=== PATIENT | male | born 1945 | race Caucasian/White ===

== ENCOUNTER → 2017-06-13 | Outpatient (REF) | payer MEDICARE ==
[~2017-06-13] MED LIST: AMLO5TAB2 PO; ASPI1TAB PO; CIPR-249 PO; DIAZ5TAB PO; FOLI1TAB4 PO; GABA-279 PO; IBUP200C10 PO; METH1TAB40 PO; OMEP20CA3 PO; PERC5TAB12 PO; PROPANOLOL PO; REST0.05 OU; ROPI0.25 PO; SIMV20TA2 PO; VITA1CAP40 PO; [UNRECOGNIZED DRUG - CODE] PO
== END ==
LOC: M LAB REF 13:20
PROVIDERS: ATTEND Urology
DX: Z85.46 Personal history of malignant neoplasm of prostate (principal); Z79.82 Long term (current) use of aspirin; Z79.899 Other long term (current) drug therapy
CPT/HCPCS: 81001; 87086; G0463

== ENCOUNTER → 2019-01-07 | Outpatient (REF) | payer MEDICARE ==
[~2019-01-07] MED LIST changes: -AMLO5TAB2 PO; +AMLO5TAB6 PO; +FOLI1TAB11 PO; -FOLI1TAB4 PO; +GABA-1171 PO; -GABA-279 PO; -IBUP200C10 PO; +IBUP200C25 PO; -ROPI0.25 PO; +ROPI0.253 PO; -VITA1CAP40 PO; +VITA50005 PO
[2019-01-07 19:00] LABS: APPEARANCE, URINE CLEAR (CLEAR); BACTERIA, URINE AUTO NEGATIVE (NEGATIVE); BILIRUBIN, URINE AUTO NEGATIVE (NEGATIVE); BLOOD, URINE BLOOD NEGATIVE (NEGATIVE); COLOR, URINE YELLOW (YELLOW); GLUCOSE, URINE (UA) AUTO NEGATIVE (NEGATIVE); KETONE, URINE AUTO NEGATIVE (NEGATIVE); LEUKOCYTE ESTERASE, URINE AUTO NEGATIVE (NEGATIVE); NITRITE, URINE AUTO NEGATIVE (NEGATIVE); PROTEIN, URINE AUTO NEGATIVE (NEGATIVE); RBC, URINE AUTO 1 /HPF (0-3); SPECIFIC GRAVITY URINE AUTO 1.021 (1.002-1.035); SQUAMOUS EPITHELIAL CELL UR AU 0 /HPF (0-6); UROBILINOGEN, URINE AUTO 0.2 mg/dL (0.0-2.0); WBC, URINE AUTO 1 /HPF (0-3)
== END ==
LOC: M SMT 17:26
PROVIDERS: ATTEND Nurse Practitioner Women's Health
DX: N39.0 Urinary tract infection, site not specified (principal)
CPT/HCPCS: 81001; 87086; G0463

== ENCOUNTER → 2019-05-03 | Outpatient (REF) | payer MEDICARE ==
[~2019-05-03] MED LIST changes: -ASPI1TAB PO; +ASPI81TA26 PO
== END ==
LOC: M LAB REF 15:28
PROVIDERS: ATTEND Nurse Practitioner Family
DX: L08.9 Local infection of the skin and subcutaneous tissue, unspecified (principal)

== ENCOUNTER → 2023-04-01 | Outpatient (REF) | payer MEDICARE ==
[~2023-04-01] MED LIST changes: +AMLO1TAB24 PO; -AMLO5TAB6 PO; +METH-1164 PO; -METH1TAB40 PO; +OMEP1CAP73 PO; -OMEP20CA3 PO; -SIMV20TA2 PO; +SIMV20TA22 PO
== END ==
LOC: M SFHCDERM 14:27
PROVIDERS: ATTEND Dermatology
DX: T14.90XD Injury, unspecified, subsequent encounter (principal)

== ENCOUNTER → 2023-04-22 | Outpatient (REF) | payer MEDICARE | LOC: M SFHCDERM 17:55 | PROVIDERS: ATTEND Dermatology | DX: T86.821 Skin graft (allograft) (autograft) failure (principal) ==

== ENCOUNTER → 2024-04-19 | Outpatient (CLI) | payer MEDICARE ==
[~2024-04-19] MED LIST changes: -ROPI0.253 PO; +ROPI5TAB19 PO
== END ==
LOC: M PLARAD 14:07
PROVIDERS: ATTEND Radiology Radiation Oncology
DX: R91.8 Other nonspecific abnormal finding of lung field (principal)
CPT/HCPCS: 78815; A9552

== ENCOUNTER → 2024-05-27 | Outpatient (CLI) | payer MEDICARE ==
[~2024-05-27] VITALS: Ht 157.5 cm; Wt 66.8 kg
[~2024-05-27] MED LIST changes: +ACET-897 PO; +ACET-907 PO; +ASPI81CH33 PO; +DEXA2TA PO; +DEXA4TA PO; +ENSULIQ51 PO; +FENO160T10 PO; +FENT12DI8 TOP; +FENT1DIS14 TOP; +FENT1PAT25 TOP; +FLEETOIL PR; +FURO40TA2 PO; +GABA-284 PO; +GNP250TA9 PO; +IBUP-1114 PO; +LOPE-39 PO; +MIRA3350 PO; +NARC1SPR; +ONDA-83 PO; +OXYC1TAB23 PO; +PROP20TA72 PO; +SENN-186 PO; +SENN-187 PO; +SENO8.6T5 PO; +SODI15SS PO; +VITA500045 PO
[2024-05-27 14:38] VITALS: BP 122/72; O2SAT 92
== END ==
LOC: M PAL 14:09
PROVIDERS: ATTEND Nurse Practitioner Adult Health
DX: G89.3 Neoplasm related pain (acute) (chronic) (principal); K59.00 Constipation, unspecified; C34.12 Malignant neoplasm of upper lobe, left bronchus or lung; Z51.5 Encounter for palliative care; Z79.82 Long term (current) use of aspirin; Z79.899 Other long term (current) drug therapy; Z79.1 Long term (current) use of non-steroidal anti-inflammatories (NSAID); Z80.3 Family history of malignant neoplasm of breast; Z87.891 Personal history of nicotine dependence; Z88.0 Allergy status to penicillin; Z91.040 Latex allergy status; Z90.79 Acquired absence of other genital organ(s)

== ENCOUNTER → 2024-06-01 | Outpatient (CLI) | payer MEDICARE ==
[~2024-06-01] MED LIST changes: -ACET-907 PO; -DEXA2TA PO; -DEXA4TA PO; -ENSULIQ51 PO; -FENT12DI8 TOP; -FENT1DIS14 TOP; -FENT1PAT25 TOP; -FLEETOIL PR; -FURO40TA2 PO; -GABA-284 PO; +LIDOCAINE 1% MDV 20ML VIAL As Ordered ONE; -MIRA3350 PO; -NARC1SPR; +ONDANSETRON 4MG 2ML VIAL As Ordered ONE; -PROP20TA72 PO; -SENN-187 PO; -SENO8.6T5 PO; -SODI15SS PO; -VITA500045 PO
[2024-06-01 08:30] VITALS: TEMP 97.4
[2024-06-01 09:15] LABS: INR 1.32; PROTHROMBIN TIME 15.9 SECONDS (12.5-14.5)
[2024-06-01] MEDS: ONDANSETRON 4MG 2ML VIAL IV ONE (11:11)
[2024-06-01 11:30] VITALS: BP 125/64; O2SAT 91
== END ==
LOC: M IRPRO 08:25
PROVIDERS: ATTEND Internal Medicine Medical Oncology
DX: R91.1 Solitary pulmonary nodule (principal); C34.12 Malignant neoplasm of upper lobe, left bronchus or lung
CPT/HCPCS: 32408; 85610; 88305; J2405

== ENCOUNTER → 2024-06-09 | Outpatient (CLI) | payer MEDICARE ==
[~2024-06-09] MED LIST changes: +ACET-907 PO; +DEXA2TA PO; +DEXA4TA PO; +ENSULIQ51 PO; +FENT12DI8 TOP; +FENT1DIS14 TOP; +FENT1PAT25 TOP; +FLEETOIL PR; +FURO40TA2 PO; +GABA-284 PO; -LIDOCAINE 1% MDV 20ML VIAL As Ordered ONE; +MIRA3350 PO; +NARC1SPR; -ONDANSETRON 4MG 2ML VIAL As Ordered ONE; +PROP20TA72 PO; +SENN-187 PO; +SENO8.6T5 PO; +SODI15SS PO; +VITA500045 PO
== END ==
LOC: M ONCR 15:14
PROVIDERS: ATTEND General Practice
DX: C34.12 Malignant neoplasm of upper lobe, left bronchus or lung (principal); C79.51 Secondary malignant neoplasm of bone; R64 Cachexia; S34.114A Complete lesion of L4 level of lumbar spinal cord, initial encounter; J38.00 Paralysis of vocal cords and larynx, unspecified; Z87.891 Personal history of nicotine dependence; Z79.82 Long term (current) use of aspirin; Z79.891 Long term (current) use of opiate analgesic; Z79.899 Other long term (current) drug therapy; Z80.3 Family history of malignant neoplasm of breast; Z88.0 Allergy status to penicillin; Z88.1 Allergy status to other antibiotic agents; Z91.040 Latex allergy status; Z90.79 Acquired absence of other genital organ(s)

== ENCOUNTER 2024-06-13 07:34 | Inpatient (IN) | payer MEDICARE ==
[~2024-06-13] VITALS: Ht 172.7 cm; Wt 68.0 kg
[2024-06-13] VITALS (11 sets, daily range): BP systolic 112–136; BP diastolic 61–72; TEMP 97.1–97.2; O2SAT 87–94
[~2024-06-13 07:34] MED LIST changes: -ACET-907 PO; -DEXA2TA PO; -DEXA4TA PO; -FENT12DI8 TOP; -FENT1PAT25 TOP; -FLEETOIL PR; -FURO40TA2 PO; -GABA-284 PO; -MIRA3350 PO; -NARC1SPR; -PROP20TA72 PO; -SENN-187 PO; -SENO8.6T5 PO; -SODI15SS PO; -VITA500045 PO
[2024-06-13] MEDS: MORPHINE 4 MG/ML 1ML VIAL IV ONE (08:29)
[2024-06-13] MEDS: MORPHINE 4 MG/ML 1ML VIAL IV PRN (09:34)
[2024-06-13 09:57] LABS: HEMATOCRIT 30.4 % (42.0-52.0); HEMOGLOBIN 9.6 g/dl (13.5-17.5); MEAN CORPUSCULAR HGB CONC 31.6 g/dl (32.0-36.5); MEAN CORPUSCULAR VOLUME 91.8 fl (80.0-96.0); PLATELET COUNT, AUTOMATED 600 10^3/uL (150-450); RED BLOOD COUNT 3.31 10^6/uL (4.30-6.10); WHITE BLOOD COUNT 13.9 10^3/uL (4.0-10.0)
[2024-06-13 10:38] LABS: BLOOD UREA NITROGEN 35 MG/DL (9-23); CALCIUM LEVEL 10.7 MG/DL (8.3-10.6); CARBON DIOXIDE LEVEL 28 MMOL/L (20-31); CHLORIDE LEVEL 103 MMOL/L (98-107); CREATININE FOR GFR 1.14 MG/DL (0.70-1.30); GLOMERULAR FILTRATION RATE > 60.0 (>42); GLUCOSE, FASTING 91 MG/DL (74-106); POTASSIUM SERUM 4.4 MMOL/L (3.5-5.1); SODIUM LEVEL 135 MMOL/L (136-145)
[2024-06-13] MEDS: KETOROLAC 30 MG/ML 1ML VIAL IV ONE (11:31)
[2024-06-13] MEDS: PERCOCET 5MG/325MG TAB PO ONE ×2 (12:27→16:26)
[2024-06-13 13:44] LABS: PROCALCITONIN 0.14 ng/ml
[2024-06-13] MEDS ORDERED: SENN-83 PO (13:59)
[2024-06-13] MEDS ORDERED: PROP20TA72 PO (13:59)
[2024-06-13] MEDS ORDERED: FENT1DIS14 TOP (13:59)
[2024-06-13] MEDS ORDERED: ONDA-83 PO (13:59)
[2024-06-13] MEDS ORDERED: ACET-907 PO (14:00)
[2024-06-13] MEDS ORDERED: VITA500045 PO (14:01)
[2024-06-13] MEDS ORDERED: HOME MED LIST COMPLETE! XX SCH (14:05)
[2024-06-13] MEDS: KETOROLAC 30 MG/ML 1ML VIAL IV PRN (14:28)
[2024-06-13] MEDS ORDERED: ENTER DRUG NAME HERE (PATIENT'S OWN MED) XX SCH (15:15)
[2024-06-13] MEDS ORDERED: NALOXONE INJ 0.4MG/1ML VIAL IV PRN (16:20)
[2024-06-13] MEDS: GABAPENTIN 300 MG CAP PO SCH (16:26)
[2024-06-13] MEDS: PERCOCET 5MG/325MG TAB PO PRN (21:30)
[2024-06-14] VITALS: BP 148/67; TEMP 98; O2SAT 94
[2024-06-14] MEDS: MORPHINE 2 MG/ML 1ML VIAL IV ONE (00:56)
[2024-06-14 05:24] VITALS: BP 138/64; TEMP 97.8; O2SAT 93
[2024-06-14] MEDS: MORPHINE 2 MG/ML 1ML VIAL IV PRN (05:36)
[2024-06-14 07:17] LABS: HEMATOCRIT 34.9 % (42.0-52.0); HEMOGLOBIN 10.7 g/dl (13.5-17.5); MEAN CORPUSCULAR HEMOGLOBIN 28.5 pg (27.0-33.0); MEAN CORPUSCULAR HGB CONC 30.7 g/dl (32.0-36.5); MEAN CORPUSCULAR VOLUME 92.8 fl (80.0-96.0); PLATELET COUNT, AUTOMATED 668 10^3/uL (150-450); RED BLOOD COUNT 3.76 10^6/uL (4.30-6.10); WHITE BLOOD COUNT 13.8 10^3/uL (4.0-10.0)
[2024-06-14 07:33] VITALS: BP 141/66; TEMP 97.8; O2SAT 92
[2024-06-14 07:35] LABS: BLOOD UREA NITROGEN 30 MG/DL (9-23); CALCIUM LEVEL 11.2 MG/DL (8.3-10.6); CARBON DIOXIDE LEVEL 31 MMOL/L (20-31); CHLORIDE LEVEL 104 MMOL/L (98-107); CREATININE FOR GFR 1.12 MG/DL (0.70-1.30); GLOMERULAR FILTRATION RATE > 60.0 (>42); GLUCOSE, FASTING 112 MG/DL (74-106); POTASSIUM SERUM 5.5 MMOL/L (3.5-5.1); SODIUM LEVEL 139 MMOL/L (136-145)
[2024-06-14] MEDS: ENOXAPARIN 40MG/0.4ML SYRINGE (J1650 PER 10MG) SC SCH (08:11)
[2024-06-14] MEDS ORDERED: MIRALAX *UNIT DOSE* 17GM PACKET PO PRN (09:45)
[2024-06-14] MEDS: SENNA 8.6 MG TAB (SENOKOT) PO PRN (10:10)
[2024-06-14 12:00] VITALS: BP 128/70; TEMP 97.4; O2SAT 94
[2024-06-14] MEDS: ALBUTEROL SULFATE 2.5MG/0.5ML INH NEB SOLN NEB ONE (12:06)
[2024-06-14] MEDS: FUROSEMIDE 40MG/4ML VIAL IV ONE (12:54)
[2024-06-14] MEDS: ASPIRIN 81MG CHEW TABLET PO SCH (12:55)
[2024-06-14] MEDS: OMEPRAZOLE 20MG CAP PO SCH (12:55)
[2024-06-14] MEDS: FOLIC ACID 1MG TAB PO SCH (12:55)
[2024-06-14] MEDS: amLODIPine 5 MG TAB PO SCH (12:56)
[2024-06-14] MEDS: PROPRANOLOL 10 MG TAB PO SCH (12:56)
[2024-06-14] MEDS: CALCIUM GLUCONATE 1,000 MG in D5W MINI-BAG PLUS 100 ML IV ONE (12:56)
[2024-06-14] MEDS: SODIUM CHLORIDE 0.9% 1000ML IV SCH (12:56)
[2024-06-14] MEDS: ONDANSETRON 4MG 2ML VIAL IV PRN (13:29)
[2024-06-14 16:00] VITALS: BP 126/62; TEMP 97.6; O2SAT 96
[2024-06-14 19:29] VITALS: BP 106/52; TEMP 97; O2SAT 94
[2024-06-14 19:59] LABS: BLOOD UREA NITROGEN 27 MG/DL (9-23); CALCIUM LEVEL 11.1 MG/DL (8.3-10.6); CARBON DIOXIDE LEVEL 30 MMOL/L (20-31); CHLORIDE LEVEL 103 MMOL/L (98-107); CREATININE FOR GFR 1.09 MG/DL (0.70-1.30); GLOMERULAR FILTRATION RATE > 60.0 (>42); GLUCOSE, FASTING 108 MG/DL (74-106); POTASSIUM SERUM 4.9 MMOL/L (3.5-5.1); SODIUM LEVEL 137 MMOL/L (136-145)
[2024-06-14] MEDS: FENOFIBRATE 145MG TABLET (TRICOR) PO SCH (20:13)
[2024-06-14] MEDS: rOPINIRole 0.25 MG TAB(REQUIP) PO SCH (20:13)
[2024-06-14] MEDS: SIMVASTATIN 20 MG TAB PO SCH (20:13)
[2024-06-15] VITALS (7 sets, daily range): BP systolic 90–130; BP diastolic 46–63; TEMP 96.9–98.1; O2SAT 90–93
[2024-06-15 06:07] LABS: BASO # 0.1 10^3/uL (0.0-0.2); BASO % 0.6 % (0.0-1.0); EOS % 7.7 % (0.0-3.0); HEMATOCRIT 30.8 % (42.0-52.0); HEMOGLOBIN 9.5 g/dl (13.5-17.5); LYMPH # 2.7 10^3/uL (1.5-5.0); LYMPH % 21.1 % (24.0-44.0); MEAN CORPUSCULAR HEMOGLOBIN 28.7 pg (27.0-33.0); MEAN CORPUSCULAR HGB CONC 30.8 g/dl (32.0-36.5); MEAN CORPUSCULAR VOLUME 93.1 fl (80.0-96.0); MONO # 1.2 10^3/uL (0.0-0.8); MONO % 9.5 % (2.0-8.0); NEUTROPHILS # 7.7 10^3/uL (1.5-8.5); NEUTROPHILS % 60.6 % (36.0-66.0); PLATELET COUNT, AUTOMATED 607 10^3/uL (150-450); RED BLOOD COUNT 3.31 10^6/uL (4.30-6.10); WHITE BLOOD COUNT 12.7 10^3/uL (4.0-10.0)
[2024-06-15 06:25] LABS: ALBUMIN 2.2 G/DL (3.2-5.2); ALKALINE PHOSPHATASE 48 U/L (46-116); ALT/SGPT < 9 U/L (7.0-40); AST/SGOT 15 U/L (<34); BILIRUBIN,TOTAL 0.3 MG/DL (0.3-1.2); BLOOD UREA NITROGEN 27 MG/DL (9-23); CALCIUM LEVEL 10.6 MG/DL (8.3-10.6); CARBON DIOXIDE LEVEL 30 MMOL/L (20-31); CHLORIDE LEVEL 102 MMOL/L (98-107); CREATININE FOR GFR 1.04 MG/DL (0.70-1.30); GLOMERULAR FILTRATION RATE > 60.0 (>42); GLUCOSE, FASTING 97 MG/DL (74-106); SODIUM LEVEL 135 MMOL/L (136-145); TOTAL PROTEIN 5.9 G/DL (5.7-8.2)
[2024-06-15] MEDS: IPRATROPIUM 0.5MG/ALBUTEROL 2.5MG INH SOL UD 3ML (DUONEB) NEB PRN (07:13)
[2024-06-15] MEDS: LR 1,000 ML IV SCH (08:48)
[2024-06-15] MEDS: KETOROLAC 30 MG/ML 1ML VIAL IV ONE (08:49)
[2024-06-15] MEDS: fentaNYL 25 MCG/HR PATCH TOP SCH (08:50)
[2024-06-15] MEDS ORDERED: FENTANYL REMOVAL DOCUMENTATION MISC XX SCH (09:00)
[2024-06-15] MEDS ORDERED: PANTOPRAZOLE 40MG VIAL IV SCH (09:00)
[2024-06-15] MEDS: dexAMETHasone 20MG/5ML VIAL IV ONE (13:00)
[2024-06-15] MEDS: MIRALAX *UNIT DOSE* 17GM PACKET PO SCH (14:30)
[2024-06-15] MEDS: GABAPENTIN 400MG CAP PO SCH (16:53)
[2024-06-15] MEDS: oxyCODONE 5MG TAB PO PRN (20:54)
[2024-06-16] VITALS (9 sets, daily range): BP systolic 110–143; BP diastolic 55–70; TEMP 96.9–97.4; O2SAT 88–95
[2024-06-16 05:52] LABS: HEMOGLOBIN 9.1 g/dl (13.5-17.5); MEAN CORPUSCULAR HEMOGLOBIN 28.5 pg (27.0-33.0); MEAN CORPUSCULAR HGB CONC 30.3 g/dl (32.0-36.5); PLATELET COUNT, AUTOMATED 665 10^3/uL (150-450); RED BLOOD COUNT 3.19 10^6/uL (4.30-6.10); WHITE BLOOD COUNT 17.9 10^3/uL (4.0-10.0)
[2024-06-16] MEDS: dexAMETHasone 20MG/5ML VIAL IV SCH (07:49)
[2024-06-16 08:20] LABS: BLOOD UREA NITROGEN 29 MG/DL (9-23); CALCIUM LEVEL 10.4 MG/DL (8.3-10.6); CARBON DIOXIDE LEVEL 31 MMOL/L (20-31); CHLORIDE LEVEL 104 MMOL/L (98-107); CREATININE FOR GFR 0.96 MG/DL (0.70-1.30); GLOMERULAR FILTRATION RATE > 60.0 (>42); GLUCOSE, FASTING 115 MG/DL (74-106); POTASSIUM SERUM 5.6 MMOL/L (3.5-5.1); SODIUM LEVEL 137 MMOL/L (136-145)
[2024-06-16] MEDS: PATIROMER SORBITEX CALCIUM 8.4 GM POWDER PACKET (VELTASSA) PO ONE (14:06)
[2024-06-17] VITALS (14 sets, daily range): BP systolic 125–158; BP diastolic 63–76; TEMP 96.8–97.1; O2SAT 89–98
[2024-06-17 07:52] LABS: HEMATOCRIT 34.8 % (42.0-52.0); HEMOGLOBIN 10.8 g/dl (13.5-17.5); MEAN CORPUSCULAR HEMOGLOBIN 28.8 pg (27.0-33.0); MEAN CORPUSCULAR VOLUME 92.8 fl (80.0-96.0); PLATELET COUNT, AUTOMATED 771 10^3/uL (150-450); RED BLOOD COUNT 3.75 10^6/uL (4.30-6.10); WHITE BLOOD COUNT 19.9 10^3/uL (4.0-10.0)
[2024-06-17 08:21] LABS: BLOOD UREA NITROGEN 24 MG/DL (9-23); CARBON DIOXIDE LEVEL 32 MMOL/L (20-31); CHLORIDE LEVEL 98 MMOL/L (98-107); CREATININE FOR GFR 0.88 MG/DL (0.70-1.30); GLOMERULAR FILTRATION RATE > 60.0 (>42); GLUCOSE, FASTING 100 MG/DL (74-106); POTASSIUM SERUM 5.5 MMOL/L (3.5-5.1); SODIUM LEVEL 132 MMOL/L (136-145)
[2024-06-17] MEDS ORDERED: fentaNYL 50 MCG/HR PATCH TOP SCH (08:25)
[2024-06-17] MEDS ORDERED: FENTANYL REMOVAL DOCUMENTATION MISC XX SCH ×2 (08:25→08:30)
[2024-06-17] MEDS: METHYLNALTREXONE BROMIDE 12MG/0.6ML VIAL (RELISTOR) SC ONE (08:57)
[2024-06-17] MEDS: LACTULOSE 20GM/30ML SYRUP UDC PO SCH ×2 (09:11→17:58)
[2024-06-17] MEDS: FENTANYL REMOVAL DOCUMENTATION MISC XX SCH (09:15)
[2024-06-17] MEDS: fentaNYL 50 MCG/HR PATCH TOP SCH (09:16)
[2024-06-17] MEDS: PATIROMER SORBITEX CALCIUM 8.4 GM POWDER PACKET (VELTASSA) PO SCH (11:36)
[2024-06-18 03:21] VITALS: BP 150/74; TEMP 97.3; O2SAT 92
[2024-06-18] MEDS ORDERED: METHYLNALTREXONE BROMIDE 12MG/0.6ML VIAL (RELISTOR) SC ONE (07:25)
[2024-06-18 07:34] VITALS: BP 146/84; TEMP 97.2; O2SAT 94
[2024-06-18 08:22] LABS: BLOOD UREA NITROGEN 26 MG/DL (9-23); CALCIUM LEVEL 11.5 MG/DL (8.3-10.6); CARBON DIOXIDE LEVEL 31 MMOL/L (20-31); CHLORIDE LEVEL 99 MMOL/L (98-107); CREATININE FOR GFR 0.86 MG/DL (0.70-1.30); GLOMERULAR FILTRATION RATE > 60.0 (>42); GLUCOSE, FASTING 91 MG/DL (74-106); POTASSIUM SERUM 5.4 MMOL/L (3.5-5.1); SODIUM LEVEL 131 MMOL/L (136-145)
[2024-06-18] MEDS ORDERED: fentaNYL 25 MCG/HR PATCH TOP SCH (09:00)
[2024-06-18] MEDS ORDERED: METAMUCIL (PSYLLIUM) PACKET PO SCH (09:00)
[2024-06-18] MEDS: dexAMETHasone 4 MG TAB PO SCH (09:11)
[2024-06-18] MEDS: SENNA 8.6 MG TAB (SENOKOT) PO SCH (09:11)
[2024-06-18] MEDS: LIDOCAINE 5% (LIDODERM) PATCH TD SCH ×2 (09:16→09:17)
[2024-06-18 10:07] LABS: PHOSPHORUS LEVEL 3.3 MG/DL (2.4-5.1)
[2024-06-18 10:08] LABS: URIC ACID 4.9 MG/DL (3.7-9.2)
[2024-06-18] MEDS: dexAMETHasone 2 MG TAB PO SCH (11:14)
[2024-06-18] MEDS: ZOLEDRONIC ACID 4 MG in IV 1 EA IV ONE (11:14)
[2024-06-18 11:48] VITALS: BP 149/85; TEMP 97; O2SAT 93
[2024-06-18] MEDS: FUROSEMIDE 20MG/2ML VIAL IV SCH (14:09)
[2024-06-18] MEDS: NS 1,000 ML IV SCH (14:09)
[2024-06-18] MEDS: METHYLNALTREXONE BROMIDE 12MG/0.6ML VIAL (RELISTOR) SC ONE (14:09)
[2024-06-18 16:20] VITALS: BP 113/67; TEMP 96.8; O2SAT 93
[2024-06-18 19:50] VITALS: BP 102/63; TEMP 97.1; O2SAT 91
[2024-06-18] MEDS: ACETAMINOPHEN *IV* 1,000 MG in IV 1 EA IV ONE (22:56)
[2024-06-18 23:16] VITALS: BP 120/59; TEMP 97.3; O2SAT 92
[2024-06-19 05:07] VITALS: BP 149/74; TEMP 97.9; O2SAT 89
[2024-06-19 05:18] LABS: HEMATOCRIT 29.4 % (42.0-52.0); HEMOGLOBIN 9.4 g/dl (13.5-17.5); MEAN CORPUSCULAR HEMOGLOBIN 29.1 pg (27.0-33.0); PLATELET COUNT, AUTOMATED 687 10^3/uL (150-450); RED BLOOD COUNT 3.23 10^6/uL (4.30-6.10); WHITE BLOOD COUNT 16.2 10^3/uL (4.0-10.0)
[2024-06-19 08:16] VITALS: BP 148/71; TEMP 97.6; O2SAT 92
[2024-06-19 08:21] LABS: BLOOD UREA NITROGEN 31 MG/DL (9-23); CALCIUM LEVEL 9.8 MG/DL (8.3-10.6); CARBON DIOXIDE LEVEL 30 MMOL/L (20-31); CHLORIDE LEVEL 102 MMOL/L (98-107); CREATININE FOR GFR 1.01 MG/DL (0.70-1.30); GLOMERULAR FILTRATION RATE > 60.0 (>42); GLUCOSE, FASTING 74 MG/DL (74-106); POTASSIUM SERUM 5.1 MMOL/L (3.5-5.1); SODIUM LEVEL 134 MMOL/L (136-145)
[2024-06-19] MEDS: FLEET OIL RETENTION ENEMA PR SCH (09:00)
[2024-06-19] MEDS: LACTULOSE 20GM/30ML SYRUP UDC PO SCH (09:05)
[2024-06-19] MEDS: FUROSEMIDE 20MG/2ML VIAL IV SCH (09:58)
[2024-06-19] MEDS ORDERED: FENT1PAT25 TOP ×2 (10:51→10:54)
[2024-06-19] MEDS ORDERED: SODI15SS PO (10:51)
[2024-06-19] MEDS ORDERED: FURO40TA2 PO (10:51)
[2024-06-19] MEDS ORDERED: GABA-284 PO (10:51)
[2024-06-19] MEDS ORDERED: MIRA3350 PO (10:51)
[2024-06-19] MEDS ORDERED: DEXA4TA PO (10:51)
[2024-06-19] MEDS ORDERED: SENO8.6T5 PO (10:51)
[2024-06-19] MEDS ORDERED: NARC1SPR (10:51)
[2024-06-19] MEDS ORDERED: FLEETOIL PR (10:51)
[2024-06-19] MEDS ORDERED: DEXA2TA PO (10:51)
[2024-06-19] MEDS ORDERED: FENT12DI8 TOP ×2 (10:52→10:54)
[2024-06-19 12:10] VITALS: BP 136/65; TEMP 96.9; O2SAT 88
[2024-06-19] MEDS: SOD POLYSTYRENE SULFONATE SUSP 15GM 60ML UD PO SCH (13:06)
[2024-06-19] MEDS: fentaNYL 50 MCG/HR PATCH TOP SCH (13:07)
[2024-06-19 15:33] VITALS: BP 116/75; TEMP 97; O2SAT 92
[2024-06-19 20:30] VITALS: BP 108/60; TEMP 97.2; O2SAT 91
[2024-06-19] MEDS: PROPRANOLOL 10 MG TAB PO SCH (21:41)
[2024-06-19 23:20] VITALS: BP 122/60; TEMP 97; O2SAT 94
[2024-06-20 03:46] VITALS: BP 107/57; TEMP 97.2; O2SAT 93
[2024-06-20 06:17] LABS: BLOOD UREA NITROGEN 27 MG/DL (9-23); CALCIUM LEVEL 9.5 MG/DL (8.3-10.6); CARBON DIOXIDE LEVEL 30 MMOL/L (20-31); CHLORIDE LEVEL 100 MMOL/L (98-107); CREATININE FOR GFR 1.03 MG/DL (0.70-1.30); GLOMERULAR FILTRATION RATE > 60.0 (>42); GLUCOSE, FASTING 78 MG/DL (74-106); POTASSIUM SERUM 4.5 MMOL/L (3.5-5.1); SODIUM LEVEL 135 MMOL/L (136-145)
[2024-06-20 08:00] VITALS: BP 138/70; TEMP 97.1; O2SAT 94
[2024-06-20] MEDS: FUROSEMIDE 40 MG TAB PO SCH (08:31)
[2024-06-20] MEDS ORDERED: ENTER DRUG NAME HERE (PATIENT'S OWN MED) TOP SCH (09:00)
[2024-06-20 12:13] VITALS: BP 104/61; TEMP 97; O2SAT 93
[2024-06-20 16:00] VITALS: BP 91/55; TEMP 97.2; O2SAT 95
[2024-06-20 20:02] VITALS: BP 105/61; TEMP 96.5; O2SAT 94
[2024-06-20 23:46] VITALS: BP 100/56; TEMP 96.9; O2SAT 96
[2024-06-21 03:22] VITALS: BP 113/58; TEMP 97.1; O2SAT 95
[2024-06-21] MEDS: ACETAMINOPHEN *IV* 1,000 MG in IV 1 EA IV ONE (03:42)
[2024-06-21 07:24] VITALS: BP 117/60; TEMP 97.6; O2SAT 94
[2024-06-21 07:58] LABS: BLOOD UREA NITROGEN 34 MG/DL (9-23); CALCIUM LEVEL 8.5 MG/DL (8.3-10.6); CARBON DIOXIDE LEVEL 29 MMOL/L (20-31); CHLORIDE LEVEL 100 MMOL/L (98-107); CREATININE FOR GFR 1.06 MG/DL (0.70-1.30); GLOMERULAR FILTRATION RATE > 60.0 (>42); GLUCOSE, FASTING 100 MG/DL (74-106); POTASSIUM SERUM 4.3 MMOL/L (3.5-5.1); SODIUM LEVEL 132 MMOL/L (136-145)
[2024-06-21 11:43] VITALS: BP 120/57; TEMP 96.7; O2SAT 92
[2024-06-21 15:33] VITALS: BP 100/58; TEMP 96.6; O2SAT 94
[2024-06-21 16:14] VITALS: BP 122/68
[2024-06-21 19:59] VITALS: BP 107/59; TEMP 96.9; O2SAT 93
[2024-06-22 03:56] VITALS: BP 111/64; TEMP 96.9; O2SAT 94
[2024-06-22 07:38] VITALS: BP 126/63; TEMP 98; O2SAT 98
[2024-06-22 09:24] VITALS: BP 126/63
[2024-06-22] MEDS: FENTANYL REMOVAL DOCUMENTATION MISC XX SCH (13:11)
[2024-06-22] MEDS: MORPHINE 2 MG/ML 1ML VIAL IV ONE (13:20)
[2024-06-22] MEDS ORDERED: FLEET ENEMA PR PRN (15:45)
[2024-06-22] MEDS: MORPHINE 2 MG/ML 1ML VIAL IV PRN (20:21)
[2024-06-23] MEDS: LORazepam 1 MG TAB PO PRN (03:58)
[2024-06-23] MEDS: MORPHINE 10MG/0.5ML ORAL CONCENTRATE SOLUTION U/D SL PRN ×3 (09:45→13:49)
[2024-06-23] MEDS: LIDOCAINE 5% (LIDODERM) PATCH TD SCH (14:35)
[2024-06-23] MEDS: MORPHINE 15 MG SA TAB PO SCH (21:47)
[2024-06-24] MEDS: MORPHINE 2 MG/ML 1ML VIAL IV PRN (08:50)
[2024-06-24] MEDS: COMBIVENT RESPIMAT 100-20MCG INHALER 4GM INH PRN (12:07)
[2024-06-25] MEDS ORDERED: FENTANYL REMOVAL DOCUMENTATION MISC XX SCH (09:00)
[2024-06-25] MEDS: MORPHINE 2 MG/ML 1ML VIAL IV PRN (17:31)
[2024-06-25] MEDS: MORPHINE 15 MG SA TAB PO SCH (21:27)
[2024-06-26] MEDS ORDERED: ACETAMINOPHEN TAB 650MG DOSE (2X325MG) PO PRN (20:20)
[2024-06-27] MEDS: HYOSCYAMINE SULFATE 0.125 MG SUBL TABLET PO PRN (00:48)
[2024-06-27 19:00] VITALS: BP 126/63; TEMP 98; O2SAT 92
[2024-06-28] MEDS ORDERED: MORPHINE 10MG/0.5ML ORAL CONCENTRATE SOLUTION U/D SL SCH (09:00)
[2024-06-28] MEDS ORDERED: MORPHINE SULFATE ORAL SOLN 10 MG/5 ML UD SL SCH (13:00)
[2024-06-28] MEDS: MORPHINE SULF IN 0.9% NACL 100 MG in IV 1 EA IV SCH (14:48)
[2024-06-28] MEDS: SCOPOLAMINE 1MG TRANSDERMAL PATCH TOP SCH (18:23)
[2024-06-28] MEDS: LORazepam 1 MG TAB PO SCH (21:56)
== END 2024-06-29 03:15 | disposition expired | DRG 947 ==
LOC: M ED 07:34 → EDBD 07:34 → M ED INP 12:36 → M PCU 15:50 → OBSVTOIN 06-17 11:16 → M MS5PR 06-25 22:29
PROVIDERS: ADMIT Internal Medicine; ATTEND Internal Medicine
DX: G89.3 Neoplasm related pain (acute) (chronic) (principal); E43 Unspecified severe protein-calorie malnutrition; J96.11 Chronic respiratory failure with hypoxia; C79.51 Secondary malignant neoplasm of bone; C34.12 Malignant neoplasm of upper lobe, left bronchus or lung; E87.29 Other acidosis; J91.0 Malignant pleural effusion; C78.39 Secondary malignant neoplasm of other respiratory organs; C78.2 Secondary malignant neoplasm of pleura; C79.89 Secondary malignant neoplasm of other specified sites; C77.1 Secondary and unspecified malignant neoplasm of intrathoracic lymph nodes; J44.9 Chronic obstructive pulmonary disease, unspecified; I12.9 Hypertensive chronic kidney disease with stage 1 through stage 4 chronic kidney disease, or unspecified chronic kidney disease; Z51.5 Encounter for palliative care; Z66 Do not resuscitate; E87.5 Hyperkalemia; K59.03 Drug induced constipation; E78.5 Hyperlipidemia, unspecified; E87.6 Hypokalemia; F41.9 Anxiety disorder, unspecified; R57.1 Hypovolemic shock; G25.0 Essential tremor; K21.9 Gastro-esophageal reflux disease without esophagitis; E83.52 Hypercalcemia; K59.09 Other constipation; D64.9 Anemia, unspecified; D47.3 Essential (hemorrhagic) thrombocythemia; N18.9 Chronic kidney disease, unspecified; Z99.81 Dependence on supplemental oxygen; Z79.82 Long term (current) use of aspirin; Z79.899 Other long term (current) drug therapy; Z88.0 Allergy status to penicillin; Z91.040 Latex allergy status; T40.2X5A Adverse effect of other opioids, initial encounter; Z87.891 Personal history of nicotine dependence; Z85.46 Personal history of malignant neoplasm of prostate

== ENCOUNTER 2024-06-18 12:30 | Outpatient (RCR) | payer MEDICARE ==
[~2024-06-18 12:30] MED LIST changes: +ACET-907 PO; +PROP20TA72 PO; +SENN-187 PO; +VITA500045 PO
[2024-06-19] MEDS ORDERED: FLEETOIL PR (10:51)
[2024-06-19] MEDS ORDERED: SODI15SS PO (10:51)
[2024-06-19] MEDS ORDERED: DEXA4TA PO (10:51)
[2024-06-19] MEDS ORDERED: GABA-284 PO (10:51)
[2024-06-19] MEDS ORDERED: DEXA2TA PO (10:51)
[2024-06-19] MEDS ORDERED: MIRA3350 PO (10:51)
[2024-06-19] MEDS ORDERED: NARC1SPR (10:51)
[2024-06-19] MEDS ORDERED: FURO40TA2 PO (10:51)
[2024-06-19] MEDS ORDERED: FENT1PAT25 TOP ×2 (10:51→10:54)
[2024-06-19] MEDS ORDERED: SENO8.6T5 PO (10:51)
[2024-06-19] MEDS ORDERED: FENT12DI8 TOP ×2 (10:52→10:54)
== END 2024-06-29 ==
LOC: M ONCR 12:30
PROVIDERS: ATTEND General Practice
DX: Z51.0 Encounter for antineoplastic radiation therapy (principal); C79.51 Secondary malignant neoplasm of bone